=== PATIENT | female | born 1980 | race Caucasian/White ===

== ENCOUNTER → 2016-12-19 | Outpatient (REF) | payer OTHER | LOC: M LAB REF 14:12 | PROVIDERS: ATTEND Physician Assistant Medical | DX: R19.4 Change in bowel habit (principal) ==

== ENCOUNTER → 2016-12-28 | Outpatient (CLI) | payer OTHER ==
--- NOTE | 2016-12-28 12:45 | REP ---
Third upper quadrant sonography: History: Upper abdominal pain. Findings: Scanning through the right upper quadrant of the abdomen demonstrates two large gallstones within the gallbladder. These measure 1.7 and 1.8 cm in diameter. Gallbladder wall is mildly thickened to 3.8 mm. No tenderness to scanning is observed. Common bile duct is normal measuring 0.3 cm in greatest diameter. There is evidence of mild fatty infiltration of the liver. No pancreatic abnormality is seen. There is no evidence of ascites or right renal abnormality. The right kidney measures 10.3 x 4.3 x 4.6 cm. Impression: Cholelithiasis, mild gallbladder wall thickening. Evidence of mild fatty liver. Signed by Js Peña MD 12/28/2016 01:25 P
== END ==
LOC: M RAD 08:04
PROVIDERS: ATTEND Physician Assistant Medical
DX: K76.0 Fatty (change of) liver, not elsewhere classified (principal); K80.20 Calculus of gallbladder without cholecystitis without obstruction

== ENCOUNTER → 2017-01-07 | Outpatient (CLI) | payer OTHER ==
[~2017-01-07] VITALS: Ht 160 cm; Wt 85.3 kg
[~2017-01-07] MED LIST: LIDOCAINE 2% INJ 100 MG/5 ML SDV (FOR ANES.) As Ordered ONE; PRENTAB16 PO; PROPOFOL 200 MG/20 ML VIAL As Ordered ONE
--- NOTE | 2017-01-07 13:16 | ROOR ---
Patient Name: Ayanna Curtis Procedure Date: 01/07/2017 1:04 PM Date of : 1980 Age: 36 Room: [facility] Gender: Female Note Status: Finalized Procedure: Upper GI endoscopy Indications: Abdominal pain in the left upper quadrant, Functional Dyspepsia Providers: Rodger JOVEL MD Referring MD: Prasad KOHLI MD Requesting Provider: Medicines: Monitored Anesthesia Care Complications: No immediate complications. Procedure: Pre-Anesthesia Assessment: - The heart rate, respiratory rate, oxygen saturations, blood pressure, adequacy of pulmonary ventilation, and response to care were monitored throughout the procedure. The Endoscope was introduced through the mouth, and advanced to the second part of duodenum. The upper GI endoscopy was accomplished without difficulty. The patient tolerated the procedure well. Findings: The esophagus was normal. The stomach was normal. The examined duodenum was normal. Impression: - Normal esophagus. - Normal stomach. - Normal examined duodenum. - No specimens collected. Recommendation: - Observe patient's clinical course. Rodger Jovel MD Rodger JOVEL MD 01/07/2017 1:16:18 PM This report has been signed electronically. Number of Addenda: 0 Note Initiated On: 01/07/2017 1:04 PM Estimated Blood Loss: Estimated blood loss: none.
--- NOTE | 2017-01-07 13:27 | ROOR ---
Patient Name: Ayanna Curtis Procedure Date: 01/07/2017 1:05 PM Date of : 1980 Age: 36 Room: [facility] Gender: Female Note Status: Finalized Procedure: Colonoscopy Indications: Abdominal pain in the left upper quadrant, Hematochezia Providers: Rodger JOVEL MD Referring MD: Prasad KOHLI MD Requesting Provider: Medicines: Monitored Anesthesia Care Complications: No immediate complications. Procedure: Pre-Anesthesia Assessment: - The heart rate, respiratory rate, oxygen saturations, blood pressure, adequacy of pulmonary ventilation, and response to care were monitored throughout the procedure. The Colonoscope was introduced through the anus and advanced to 6 cm into the ileum. The colonoscopy was performed without difficulty. The patient tolerated the procedure well. The quality of the bowel preparation was good. Findings: The perianal and digital rectal examinations were normal. (Exam: Complete, Prep: Good or Excellent.) Small Internal Hemorrhoids. The entire examined colon appeared normal on direct and retroflexion views. The terminal ileum appeared normal. Impression: - (Exam: Complete, Prep: Good or Excellent.) - Small Internal Hemorrhoids. - The colon is normal on direct and retroflexion views. - The examined portion of the ileum was normal. - No specimens collected. Recommendation: - Use fiber, for example Citrucel, Fibercon, Konsyl or Metamucil. Rodger Jovel MD Rodger JOVEL MD 01/07/2017 1:26:53 PM This report has been signed electronically. Number of Addenda: 0 Note Initiated On: 01/07/2017 1:05 PM Estimated Blood Loss: Estimated blood loss: none.
[2017-01-07 14:08] VITALS: BP 129/79
== END ==
LOC: M OPP 12:37
PROVIDERS: ATTEND Internal Medicine Gastroenterology
DX: R19.4 Change in bowel habit (principal); K92.1 Melena; K64.0 First degree hemorrhoids; R10.12 Left upper quadrant pain; K30 Functional dyspepsia